=== PATIENT | female | born 1945 ===

== ENCOUNTER 2017-06-05 09:17 | Emergency (ER) | payer MEDICARE, MEDICAID ==
[2017-06-05 09:17] VITALS: BMI 32.5
[2017-06-05 09:30] VITALS: RESP 18
[2017-06-05] MEDS ORDERED: Aluminum Hydroxide/Magnesium Hydroxide Susp (30 mL) PO STA (09:41)
[2017-06-05] MEDS ORDERED: Aluminum Hydroxide/Magnesium Hydroxide Susp (30 mL) ONE (09:55)
--- NOTE | 2017-06-05 09:55 | C.PDOC ---
History Of Present Illness 71 y/o female with a past medical history of hypertension and right trigeminal nerve disorder, presents to the ED for evaluation s/p trip and fall. States her shoe got caught on uneven sidewalk and she hit her left knee and sustained multiple abrasions to the dorsal area of her fingers. No LOC, head trauma, nausea, vomiting, neck pain, or other injury. She denies any dizziness, shortness of breath, or chest pain at or prior to the fall. Patient is able to take steps but is complaining of bilateral hip pain radiating into the buttocks area. PMD: Ke Dowling Time Seen by Provider: 06/05/17 09:40 Chief Complaint (Nursing): Lower Extremity Problem/Injury History Per: Patient History/Exam Limitations: no limitations Onset/Duration Of Symptoms: Mins Current Symptoms Are (Timing): Still Present - Knee Description Of Injury: Fell Past Medical History Reviewed: Historical Data, Nursing Documentation, Vital Signs Vital Signs: Last Vital Signs Temp 97.8 F 06/05/17 13:19 Pulse 62 06/05/17 13:19 Resp 18 06/05/17 13:19 BP 145/84 06/05/17 13:19 Pulse Ox 99 06/05/17 13:19 - Medical History PMH: HTN, Hypercholesterolemia, Hyperlipidemia, Hypothyroidism Other PMH: right trigeminal nerve disorder - [facility] NEBULIZER THERAPY (07/05/13) Family History: States: No Known Family Hx - Social History Hx Alcohol Use: Yes Hx Substance Use: No - Immunization History Hx Tetanus Toxoid Vaccination: No Hx Influenza Vaccination: No Hx Pneumococcal Vaccination: No Review Of Systems Except As Marked, All Systems Reviewed And Found Negative. Cardiovascular: Negative for: Chest Pain Respiratory: Negative for: Shortness of Breath Gastrointestinal: Negative for: Nausea, Vomiting Musculoskeletal: Positive for: Leg Pain (Left knee pain), Other (Bilateral hip pain radiating to buttocks). Negative for: Neck Pain, Back Pain Skin: Positive for: Lesions (abrasions to fingers) Neurological: Negative for: Headache, Dizziness Physical Exam - Physical Exam Appears: Non-toxic, No Acute Distress, Other (Conversational, cooperative) Skin: Normal Color, Warm, Dry Head: Atraumatic, Normacephalic Eye(s): bilateral: Normal Inspection, PERRL, EOMI Ear(s): Bilateral: Normal Nose: Normal Oral Mucosa: Moist Neck: Normal ROM, No Midline Cervical Tenderness, No Paracervical Tenderness, Supple Chest: Symmetrical, No Tenderness Cardiovascular: Rhythm Regular, No Murmur Respiratory: Normal Breath Sounds, No Accessory Muscle Use, No Wheezing Gastrointestinal/Abdominal: Soft, No Tenderness, No Distention Back: Normal Inspection, No CVA Tenderness, No Vertebral Tenderness Extremity: No Deformity, Swelling (redness and swelling over the left knee), Other (Discomfort to bilateral hips but no swelling or ecchymosis. (+) bilateral knee scars from total knee replacement surgeries) Neurological/Psych: Oriented x3, Normal Speech ED Course And Treatment O2 Sat by Pulse Oximetry: 98 (RA) Pulse Ox Interpretation: Normal - Other Rad bilateral knee X-Ray: Viewed By Me, Read By Radiologist Interpretation: Findings: Bilateral knee arthroplasties. No acute displaced fracture identified. No dislocation. Small right-sided suprapatellar and infrapatellar joint effusions. Suspect small left suprapatellar effusion. Left- sided chondrocalcinosis. Degenerative changes bilaterally. Impression: Bilateral knee arthroplasties. Small right-sided suprapatellar and infrapatellar joint effusions. Probable small left suprapatellar joint effusion. Degenerative changes. Left-sided chondrocalcinosis. No acute displaced fracture identified. If indicated recommend further evaluation with cross-sectional imaging. Medical Decision Making Medical Decision Making: Initial Impression: 71 year old with knee pain s/p fall Time: 9:41 Initial Plan: * X-ray of bilateral knees * Tylenol 975 mg PO * Motrin 600 mg PO * Maalox Plus 30 ml PO 11:50 On reevaluation, patient reports slight improvement after medications given. States she feels as if her right knee is missing a screw from the prior knee replacement surgery. Still pending official reading of x-rays. 12:[address] Sheridan for orthopedic consult Disposition Discussed With : Willy Sheridan III Doctor Will See Patient In The: Office Counseled Patient/Family Regarding: Studies Performed, Diagnosis - Disposition Referrals: Willy Sheridan III, MD [Staff Provider] - Disposition: HOME/ ROUTINE Disposition Time: 13:44 Condition: STABLE Additional Instructions: Use your walker at home for stability. Follow up with Dr. Sheridan on Sunday. Prescriptions: Ibuprofen [Motrin] 600 mg PO TID #15 tab Instructions: Contusion (DC) Forms: [facility] (And[place]ran), General Discharge Instructions - POA Present On Arrival: None - Clinical Impression Clinical Impression: Joint pain, Knee pain, Contusion - Scribe Statement The provider has reviewed the documentation as recorded by the Scribe (Nataly Duke) Provider Attestation: All medical record entries made by the Scribe were at my direction and personally dictated by me. I have reviewed the chart and agree that the record accurately reflects my personal performance of the history, physical exam, medical decision making, and the department course for this patient. I have also personally directed, reviewed, and agree with the discharge instructions and disposition.
--- NOTE | 2017-06-05 12:27 | RAD ---
Bilateral knee radiographs Comparison: None available Indication: Fall Findings: Bilateral knee arthroplasties. No acute displaced fracture identified. No dislocation. Small right-sided suprapatellar and infrapatellar joint effusions. Suspect small left suprapatellar effusion. Left-sided chondrocalcinosis. Degenerative changes bilaterally. Impression: Bilateral knee arthroplasties. Small right-sided suprapatellar and infrapatellar joint effusions. Probable small left suprapatellar joint effusion. Degenerative changes. Left-sided chondrocalcinosis. No acute displaced fracture identified. If indicated recommend further evaluation with cross-sectional imaging.
[2017-06-05 13:20] VITALS: BP 145/84; PULSE 62; TEMP 97.8
[2017-06-05 13:47] VITALS: O2SAT 98
== END 2017-06-05 14:06 | disposition home or self-care (01) ==
LOC: C.ER 09:17
DX: S80.02XA Contusion of left knee, initial encounter (principal); W01.0XXA Fall on same level from slipping, tripping and stumbling without subsequent striking against object, initial encounter; M25.562 Pain in left knee
CPT/HCPCS: 73560; 97116; 97161; 99285; G8978; G8979; G8980